=== PATIENT | male | born 1955 | race Caucasian/White ===

== ENCOUNTER 2018-03-19 14:14 | Emergency (ER) | payer OTHER ==
[2018-03-19] MEDS ORDERED: Ketorolac 60 MG/2 ML SDV ONE (14:56)
[2018-03-19] MEDS ORDERED: Ketorolac 60 MG/2 ML SDV IM ONE (14:56)
--- NOTE | 2018-03-19 15:00 | EDM.PDOC ---
ED HPI GENERAL MEDICAL PROBLEM - General Chief Complaint: Gastrointestinal Problem Stated Complaint: NAUSEAUS, PAIN ON SIDE, FEVER Time Seen by Provider: 03/19/18 14:45 Source of Information: Reports: Patient, Family History Limitations: Reports: No Limitations - History of Present Illness INITIAL COMMENTS - FREE TEXT/NARRATIVE: 62-year-old male with a history of kidney stones in the past, developed right flank pain, nausea and vomiting after breakfast this morning. As the day has gone on the emesis is become more persistent and the pain more focused in the right flank radiating around the right abdomen. He feels chilled and thought he was running a fever. No recent trauma. No rashes or joint pains. Onset: Sudden (Symptoms started fairly suddenly this morning around 10 AM) Severity: Moderate Associated Symptoms: Reports: Malaise, Nausea/Vomiting, Other (Periumbilical abdominal discomfort with chills). Denies: Chest Pain, Cough, Shortness of Breath - Related Data Allergies Allergy/AdvReac Type Severity Reaction Status Date / Time No Known Allergies Allergy Verified 03/19/18 14:28 Home Meds: Home Meds Hydrochlorothiazide/Lisinopril [Lisinopril/HCTZ 20-12.5 MG] 03/19/18 [History] Omeprazole 03/19/18 [History] Past Medical History - Past Surgical History Male Surgical History: Reports: Renal Calculus Musculoskeletal Surgical History: Reports: Hip Replacement Social & Family History - Tobacco Use Smoking Status *Q: Never Smoker ED ROS GENERAL - Review of Systems Review Of Systems: See Below Constitutional: Reports: Chills, Malaise, Decreased Appetite HEENT: Reports: No Symptoms Respiratory: Denies: Shortness of Breath, Cough Cardiovascular: Denies: Chest Pain GI/Abdominal: Reports: Abdominal Pain, Nausea, Vomiting. Denies: Constipation, Diarrhea : Reports: Flank Pain (On the right side) Musculoskeletal: Reports: No Symptoms Skin: Reports: Diaphoresis Neurological: Reports: No Symptoms Psychiatric: Reports: No Symptoms ED EXAM, GENERAL - Physical Exam Exam: See Below Exam Limited By: No Limitations General Appearance: Alert, Moderate Distress Eye Exam: Bilateral Eye: Normal Inspection Respiratory/Chest: No Respiratory Distress, Lungs Clear Cardiovascular: Regular Rate, Rhythm, Tachycardia GI/Abdominal: Soft, Non-Tender, Other (Some discomfort with palpation but no true tenderness or focal pain, no guarding) Neurological: Alert, Oriented Psychiatric: Anxious Skin Exam: Warm, Dry Course - Vital Signs Last Recorded V/S: Last Vital Signs Temp 97.7 F 03/19/18 14:38 Pulse 103 H 03/19/18 14:38 Resp 14 03/19/18 14:38 BP 137/83 03/19/18 14:38 Pulse Ox 98 03/19/18 14:38 - Orders/Labs/Meds Orders: Active Orders 24 hr Category Date Time Status Abdomen Pelvis wo Cont [CT] Stat Exams 03/19/18 14:56 Taken UA W/MICROSCOPIC [URIN] Urgent Lab 03/19/18 14:55 Ordered Labs: Laboratory Tests 03/19/18 Range/Units 14:55 Urine Color Yellow Urine Appearance Clear Urine pH 5.0 (4.5-8.0) Ur Specific [place] 1.015 (1.008-1.030) Urine Protein Negative (NEGATIVE) mg/dL Urine Glucose (UA) 50 H (NEGATIVE) mg/dL Urine Ketones Negative (NEGATIVE) mg/dL Urine Occult Blood Moderate (NEGATIVE) Urine Nitrite Negative (NEGAITVE) Urine Bilirubin Negative (NEGATIVE) Urine Urobilinogen Normal (NORMAL) mg/dL Ur Leukocyte Esterase Negative (NEGATIVE) Urine RBC 5-10 H (0-5) Urine WBC Not seen (0-5) Ur Epithelial Cells Rare Amorphous Sediment Not seen Urine Bacteria Not seen Urine Mucus Not seen Meds: Medications Discontinued Medications Generic Name Dose Route Start Last Admin Trade Name Freq PRN Reason Stop Dose Admin Ketorolac Tromethamine 60 mg 03/19/18 14:56 03/19/18 15:20 Toradol IM 03/19/18 14:57 60 mg ONETIME ONE Administration Ketorolac Tromethamine Confirm 03/19/18 14:56 Toradol Administered 03/19/18 14:57 Dose 60 mg .ROUTE .STK-MED ONE Ondansetron HCl 4 mg 03/19/18 15:17 03/19/18 15:21 Zofran Odt PO 03/19/18 15:18 4 mg ONETIME ONE Administration Ondansetron HCl Confirm 03/19/18 15:19 Zofran Odt Administered 03/19/18 15:20 Dose 4 mg .ROUTE .STK-MED ONE Tamsulosin HCl 0.4 mg 03/19/18 16:15 03/19/18 16:22 Flomax PO 03/19/18 16:16 0.4 mg ONETIME ONE Administration - Re-Assessments/Exams Free Text/Narrative Re-Assessment/Exam: 03/19/18 14:59 A UA was obtained, the patient was given 60 mg of IM Toradol and a CT scan of the abdomen and pelvis without contrast was obtained. 03/19/18 16:16 UA had 5-10 RBCs per high-power field, no evidence of infection. CT scan was read as negative by urology however there appeared to be a small amount of distal ureteral hydronephrosis and a very large amount of artifact from his right hip obscures much of the distal ureter. The appendix was normal and there were no other acute findings. With the patient's symptoms, the hematuria, and the inadequate CT it has to be assumed that this patient is trying to pass a stone. He was given 0.4 mg of Flomax, and will take 10 mg of Toradol 3 times a day for the next 2-3 days and return if not improving. He can always return sooner if worsening. Scan may have to be repeated at that time with IV contrast to rule out unlikely but possible renal infarct or other source of pain Departure - Departure Time of Disposition: 16:35 Disposition: Home, Self-Care 01 Condition: Fair Clinical Impression: Vomiting, Renal colic on right side - Discharge Information Instructions: Flank Pain, Adult Referrals: PCP,None [Primary Care Provider] - Forms: ED Department Discharge Care Plan Goals: Maintain hydration, take ketorolac every 6-8 hours for the next 48 hours or until pain resolves. Return anytime if worsening such as intractable pain or persistent vomiting. - My Orders Last 24 Hours: My Active Orders 03/19/18 14:55 UA W/MICROSCOPIC [URIN] Urgent 03/19/18 14:56 Abdomen Pelvis wo Cont [CT] Stat - Assessment/Plan Last 24 Hours: My Active Orders 03/19/18 14:55 UA W/MICROSCOPIC [URIN] Urgent 03/19/18 14:56 Abdomen Pelvis wo Cont [CT] Stat
[2018-03-19] MEDS ORDERED: Ondansetron 4 MG Tab.DIS PO ONE (15:17)
[2018-03-19] MEDS ORDERED: Ondansetron 4 MG Tab.DIS ONE (15:19)
[2018-03-19] MEDS ORDERED: Tamsulosin 0.4 MG Cap.ER PO ONE (16:15)
== END 2018-03-19 16:41 | disposition home or self-care (01) ==
LOC: JP.ED 14:14
DX: N20.0 Calculus of kidney (principal)
CPT/HCPCS: 74176; 81001; 96372; 99284; A9270; J1885

== ENCOUNTER 2018-03-22 12:13 | Emergency (ER) | payer OTHER ==
--- NOTE | 2018-03-22 13:07 | EDM.PDOC ---
ED HPI GENERAL MEDICAL PROBLEM - General Chief Complaint: Fever Stated Complaint: RECHECK STILL RUNNING TEMP AND TIRED Time Seen by Provider: 03/22/18 12:55 Source of Information: Reports: Patient, Family History Limitations: Reports: No Limitations - History of Present Illness INITIAL COMMENTS - FREE TEXT/NARRATIVE: 62-year-old male that I saw 3 days ago with persistent intermittent fevers, abdominal pain, diarrhea, and flank pain we felt likely had a kidney stone. Diarrhea has persisted, the abdominal pain has improved but he still running intermittent fevers and feels very fatigued and tired. I called him this morning and he felt he would like to be reevaluated. His temperature was 101.4 when he was done fishing this morning, it now seems to have resolved and is normal. Onset: Today Location: Reports: Generalized Severity: Moderate Associated Symptoms: Reports: Fever/Chills, Malaise, Weakness, Other ( Persistent diarrhea). Denies: Chest Pain, Cough, Shortness of Breath Generalized Pain Score (Numeric/FACES): 2 - Related Data Allergies Allergy/AdvReac Type Severity Reaction Status Date / Time No Known Allergies Allergy Verified 03/22/18 12:46 Home Meds: Home Meds Hydrochlorothiazide/Lisinopril [Lisinopril/HCTZ 20-12.5 MG] 1 tab PO DAILY 03/19 [History] Omeprazole 40 mg PO DAILY 03/19/18 [History] Past Medical History Cardiovascular History: Reports: Hypertension Genitourinary History: Reports: Renal Calculus - Past Surgical History Male Surgical History: Reports: Renal Calculus Musculoskeletal Surgical History: Reports: Hip Replacement Other Musculoskeletal Surgeries/Procedures:: right hip Social & Family History - Tobacco Use Smoking Status *Q: Former Smoker Used Tobacco, but Quit: Yes Month/Year Tobacco Last Used: quit 13 years ago - Caffeine Use Caffeine Use: Reports: Coffee, Soda, Tea - Recreational Drug Use Recreational Drug Use: No ED ROS GENERAL - Review of Systems Review Of Systems: See Below Constitutional: Reports: Fever, Chills, Malaise, Weakness. Denies: Decreased Appetite HEENT: Reports: No Symptoms Respiratory: Denies: Shortness of Breath Cardiovascular: Denies: Chest Pain Endocrine: Reports: Fatigue GI/Abdominal: Reports: Diarrhea. Denies: Abdominal Pain, Nausea, Vomiting : Reports: No Symptoms Musculoskeletal: Reports: Back Pain (Has improved in the last 3 days) Skin: Reports: No Symptoms Neurological: Reports: Weakness. Denies: Dizziness, Headache Psychiatric: Reports: No Symptoms ED EXAM, GENERAL - Physical Exam Exam: See Below Exam Limited By: No Limitations General Appearance: Alert, No Apparent Distress Eye Exam: Bilateral Eye: Normal Inspection (No jaundice, hydrated normally) Head: Atraumatic Respiratory/Chest: No Respiratory Distress, Lungs Clear Cardiovascular: Regular Rate, Rhythm GI/Abdominal: Soft, Non-Tender Extremities: Normal Inspection. No: Pedal Edema Neurological: Alert, Oriented Psychiatric: Normal Affect, Normal Mood Skin Exam: Warm, Dry Course - Vital Signs Last Recorded V/S: Last Vital Signs Temp 97.3 F 03/22/18 12:44 Pulse 99 03/22/18 12:44 Resp 16 03/22/18 12:44 BP 135/82 03/22/18 12:44 Pulse Ox 94 L 03/22/18 12:44 - Orders/Labs/Meds Orders: Active Orders 24 hr Category Date Time Status CLOSTRIDIUM DIFFICILE BY PCR [RM] Stat Lab 03/22/18 13:05 Ordered CULTURE STOOL + SHIGATOX [RM] Stat Lab 03/22/18 13:05 Ordered WBC, STOOL [OP] Stat Lab 03/22/18 13:05 Ordered Labs: Laboratory Tests 03/22/18 03/22/18 Range/Units 13:17 13:17 WBC 9.5 (4.5-11.0) K/uL RBC 4.70 (4.30-5.90) M/uL Hgb 14.1 (12.0-15.0) g/dL Hct 42.0 (40.0-54.0) % MCV 89 (80-98) fL MCH 30 (27-31) pg MCHC 34 (32-36) % Plt Count 248 (150-400) K/uL Neut % (Auto) 69 H (36-66) % Lymph % (Auto) 20 L (24-44) % Craig % (Auto) 11 H (2-6) % Eos % (Auto) 0 L (2-4) % Baso % (Auto) 0 (0-1) % Sodium 135 L (140-148) mmol/L Potassium 3.1 L (3.6-5.2) mmol/L Chloride 99 L (100-108) mmol/L Carbon Dioxide 27 (21-32) mmol/L Anion Gap 12.1 (5.0-14.0) mmol/L BUN 16 (7-18) mg/dL Creatinine 1.3 (0.8-1.3) mg/dL Est Cr Clr Drug Dosing 63.01 mL/min Estimated GFR (MDRD) 56 L (>60) Glucose 119 H (74-106) mg/dL Calcium 8.6 (8.5-10.1) mg/dL Total Bilirubin 0.4 (0.2-1.0) mg/dL AST 27 (15-37) U/L ALT 41 (12-78) U/L Alkaline Phosphatase 84 (46-116) U/L Total Protein 7.0 (6.4-8.2) g/dL Albumin 2.9 L (3.4-5.0) g/dL Globulin 4.1 H (2.3-3.5) g/dL Albumin/Globulin Ratio 0.7 L (1.2-2.2) - Re-Assessments/Exams Free Text/Narrative Re-Assessment/Exam: 03/22/18 13:07 CBC, CMP were obtained as well as a stool sample for WBCs, C. difficile and culture. 03/22/18 14:30 CBC is normal, CMP shows a potassium of 3.1 but otherwise reassuring. Patient was here for over an hour and did not provide a stool sample. His fever did not recur, he'll be discharged with a viral syndrome and recheck if not improving in 2-3 days. Departure - Departure Time of Disposition: 14:35 Disposition: Home, Self-Care 01 Condition: Good Clinical Impression: Gastroenteritis - Discharge Information Instructions: Viral Gastroenteritis, Adult, [id number] Referrals: PCP,None [Primary Care Provider] - Forms: ED Department Discharge Care Plan Goals: Increase diet and activity as tolerated. Recheck in 2-4 days if not improving satisfactorily. - My Orders Last 24 Hours: My Active Orders 03/22/18 13:05 CLOSTRIDIUM DIFFICILE BY PCR [RM] Stat CULTURE STOOL + SHIGATOX [RM] Stat WBC, STOOL [OP] Stat - Assessment/Plan Last 24 Hours: My Active Orders 03/22/18 13:05 CLOSTRIDIUM DIFFICILE BY PCR [RM] Stat CULTURE STOOL + SHIGATOX [RM] Stat WBC, STOOL [OP] Stat
== END 2018-03-22 14:49 | disposition home or self-care (01) ==
LOC: JP.ED 12:13
DX: K52.9 Noninfective gastroenteritis and colitis, unspecified (principal); I10 Essential (primary) hypertension; Z87.891 Personal history of nicotine dependence; Z79.899 Other long term (current) drug therapy
CPT/HCPCS: 36415; 80053; 85025; 99284